=== PATIENT | female | born 1995 | race African-American/Black ===

== ENCOUNTER 2017-12-29 19:19 | Emergency (ER) | payer SELFPAY, OTHER ==
[2017-12-29] MEDS: FLUORESCEIN OPHTH TEST STRIP. OU (20:29)
[2017-12-29] MEDS: TETRACAINE 0.5% OPHTH SOLUTION 4ML BOTTLE. OU (20:29)
== END 2017-12-29 20:52 | disposition home or self-care (01) ==
LOC: ER 19:19
DX: T65.891A Toxic effect of other specified substances, accidental (unintentional), initial encounter (principal); H57.11 Ocular pain, right eye; Y92.89 Other specified places as the place of occurrence of the external cause
CPT/HCPCS: 99283

== ENCOUNTER 2019-04-27 15:20 | Emergency (ER) | payer SELFPAY ==
[~2019-04-27] VITALS: Ht 160 cm; Wt 82.8 kg
[~2019-04-27 15:20] MED LIST: HYDR-2761 PO; ONDA4TAB10 SL; TOBR5DRO2 OD
[2019-04-27 15:55] LABS: BILIRUBIN,URINE NEGATIVE (NEG); CLARITY,URINE CLOUDY; COLOR,URINE YELLOW; NITRITE,URINE NEGATIVE (NEG); PH,URINE 7.5; PROTEIN,URINE NEGATIVE (NEG-TRACE)
[2019-04-27 15:59] LABS: U PREG PATIENT POSITIVE (NEG)
[2019-04-27 16:08] LABS: AMORPHOUS SEDIMENT,UR PRESENT /HPF; BACTERIA,URINE 0 /HPF (0-FEW); RBC,URINE 0 /HPF (0-2); SQUAMOUS EPITHELIAL CELL,UR MANY /LPF
[2019-04-27 16:41] LABS: BASO # 0.1 x10^3/uL (0.0-0.2); BASO % 1 % (0-3); EOS # 0.3 x10^3/uL (0.0-0.7); EOS % 4 % (0-3); HEMATOCRIT 38.1 % (36.0-47.0); HEMOGLOBIN 12.6 g/dL (12.0-15.5); LYMPH # 2.1 x10^3/uL (1.0-4.8); LYMPH % 25 % (24-48); MEAN CORPUSCULAR HEMOGLOBIN 27 pg (25-35); MEAN CORPUSCULAR HGB CONC 33 g/dL (31-37); MEAN CORPUSCULAR VOLUME 81 fL (79-100); MONO # 0.6 x10^3/uL (0.0-1.1); MONO % 7 % (0-9); NEUT # 5.2 x10^3uL (1.8-7.7); NEUT % 63 % (31-73); PLATELET COUNT 237 x10^3/uL (140-400); RED BLOOD COUNT 4.72 x10^6/uL (3.50-5.40); RED CELL DISTRIBUTION WIDTH 14.5 % (11.5-14.5); WHITE BLOOD COUNT 8.2 x10^3/uL (4.0-11.0)
[2019-04-27 17:02] LABS: CALCIUM 8.8 mg/dL (8.5-10.1); CREATININE 0.8 mg/dL (0.6-1.0); GFR 105.8; POTASSIUM 3.6 mmol/L (3.5-5.1)
[2019-04-27 17:09] LABS: ALBUMIN 3.4 g/dL (3.4-5.0); ALBUMIN/GLOBULIN RATIO 0.8 (1.0-1.7); TOTAL BILIRUBIN 0.2 mg/dL (0.2-1.0); TOTAL PROTEIN 7.7 g/dL (6.4-8.2)
--- NOTE | 2019-04-27 17:48 | PHYS DOC ---
Past Medical History Past Medical History: No Pertinent History (MO HOUSTON APRN) Past Surgical History: No Surgical History (MO HOUSTON APRN) Alcohol Use: None Drug Use: None (MO HOUSTON APRN) Adult General Chief Complaint Chief Complaint: ABDOMINAL PAIN IN HPI HPI Patient is a 23 year old female who presents with generalized 9 out of 10 abdominal pain described as cramping that began today after she found out she is . She states her last menstrual cycle was March 25, 2019. Patient denies any vaginal bleeding. She is complaining of nausea. She is a 3 para 1 with one miscarriage. Denies anything exacerbating or relieving her pain. (MO HOUSTON APRN) Review of Systems Review of Systems Constitutional: Denies fever or chills [] Eyes: Denies change in visual acuity, redness, or eye pain [] HENT: Denies nasal congestion or sore throat [] Respiratory: Denies cough or shortness of breath [] Cardiovascular: No additional information not addressed in HPI [] GI: Reports abdominal pain, nausea, denies vomiting, bloody stools or diarrhea [] : Denies dysuria or hematuria [] Musculoskeletal: Denies back pain or joint pain [] Integument: Denies rash or skin lesions [] Neurologic: Denies headache, focal weakness or sensory changes [] Endocrine: Denies polyuria or polydipsia [] All other systems were reviewed and found to be within normal limits, except as documented in this note. (MO HOUSTON APRN) Allergies Allergies Allergies Coded Allergies Type Severity Reaction Last Updated Verified No Known Drug Allergies 07/16/16 No (JOSE HATCH MD) Physical Exam Physical Exam Constitutional: Well developed, well nourished, no acute distress, non-toxic appearance. [] HENT: Normocephalic, atraumatic, bilateral external ears normal, oropharynx moist, no oral exudates, nose normal. [] Eyes: PERRLA, EOMI, conjunctiva normal, no discharge. [] Neck: Normal range of motion, no tenderness, supple, no stridor. [] Cardiovascular:Heart rate regular rhythm, no murmur [] Lungs & Thorax: Bilateral breath sounds clear to auscultation [] Abdomen: Bowel sounds normal, soft, no tenderness, no masses, no pulsatile masses. [] Pelvic exam External pelvic appears normal, cervix is visualized, closed, no CMT, no adnexal tenderness, trace amount of white discharge in the vaginal vault. Skin: Warm, dry, no erythema, no rash. [] Back: No tenderness, no CVA tenderness. [] Extremities: No tenderness, no cyanosis, no clubbing, ROM intact, no edema. [] Neurologic: Alert and oriented X 3, normal motor function, normal sensory function, no focal deficits noted. [] Psychologic: Affect normal, judgement normal, mood normal. [] (MO HOUSTON APRN) Current Patient Data Vital Signs Vital Signs Date Time Temp Pulse Resp B/P (MAP) Pulse Ox O2 Delivery O2 Flow Rate FiO2 04/27/19 18:22 89 137/73 (94) Room Air 04/27/19 17:22 99 04/27/19 16:12 97.8 14 97.8 (JOSE HATCH MD) Lab Values Laboratory Tests Test 04/27/19 15:30 04/27/19 16:35 Urine Collection Type Unknown Urine Color Yellow Urine Clarity Cloudy Urine pH 7.5 Urine Specific Halsey 1.025 Urine Protein Negative mg/dL (NEG-TRACE) Urine Glucose (UA) Negative mg/dL (NEG) Urine Ketones (Stick) Negative mg/dL (NEG) Urine Blood Negative (NEG) Urine Nitrite Negative (NEG) Urine Bilirubin Negative (NEG) Urine Urobilinogen Dipstick 1.0 mg/dL (0.2 mg/dL) Urine Leukocyte Esterase Small (NEG) Urine RBC 0 /HPF (0-2) Urine WBC 1-4 /HPF (0-4) Urine Squamous Epithelial Cells Many /LPF Urine Amorphous Sediment Present /HPF Urine Bacteria 0 /HPF (0-FEW) Urine Mucus Mod /LPF Urine Test Positive (NEG) Urine Opiates Screen Neg (NEG) Urine Methadone Screen Neg (NEG) Urine Barbiturates Neg (NEG) Urine Phencyclidine Screen Neg (NEG) Urine Amphetamine/Methamphetamine Neg (NEG) Urine Benzodiazepines Screen Neg (NEG) Urine Cocaine Screen Pos (NEG) Urine Cannabinoids Screen Neg (NEG) Urine Ethyl Alcohol Neg (NEG) White Blood Count 8.2 x10^3/uL (4.0-11.0) Red Blood Count 4.72 x10^6/uL (3.50-5.40) Hemoglobin 12.6 g/dL (12.0-15.5) Hematocrit 38.1 % (36.0-47.0) Mean Corpuscular Volume 81 fL (79-100) Mean Corpuscular Hemoglobin 27 pg (25-35) Mean Corpuscular Hemoglobin Concent 33 g/dL (31-37) Red Cell Distribution Width 14.5 % (11.5-14.5) Platelet Count 237 x10^3/uL (140-400) Neutrophils (%) (Auto) 63 % (31-73) Lymphocytes (%) (Auto) 25 % (24-48) Monocytes (%) (Auto) 7 % (0-9) Eosinophils (%) (Auto) 4 % (0-3) H Basophils (%) (Auto) 1 % (0-3) Neutrophils # (Auto) 5.2 x10^3uL (1.8-7.7) Lymphocytes # (Auto) 2.1 x10^3/uL (1.0-4.8) Monocytes # (Auto) 0.6 x10^3/uL (0.0-1.1) Eosinophils # (Auto) 0.3 x10^3/uL (0.0-0.7) Basophils # (Auto) 0.1 x10^3/uL (0.0-0.2) Maternal Serum HCG Beta Subunit 3767 mIU/mL (0-5) H Sodium Level 138 mmol/L (136-145) Potassium Level 3.6 mmol/L (3.5-5.1) Chloride Level 103 mmol/L (98-107) Carbon Dioxide Level 29 mmol/L (21-32) Anion Gap 6 (6-14) Blood Urea Nitrogen 11 mg/dL (7-20) Creatinine 0.8 mg/dL (0.6-1.0) Estimated GFR (Cockcroft-Gault) 105.8 BUN/Creatinine Ratio 14 (6-20) Glucose Level 89 mg/dL (70-99) Calcium Level 8.8 mg/dL (8.5-10.1) Total Bilirubin 0.2 mg/dL (0.2-1.0) Aspartate Amino Transferase (AST) 17 U/L (15-37) Alanine Aminotransferase (ALT) 28 U/L (14-59) Alkaline Phosphatase 82 U/L (46-116) Total Protein 7.7 g/dL (6.4-8.2) Albumin 3.4 g/dL (3.4-5.0) Albumin/Globulin Ratio 0.8 (1.0-1.7) L Lipase 137 U/L (73-393) Ethyl Alcohol Level < 3 mg/dL (0-10) Laboratory Tests 04/27/19 16:35 Laboratory Tests 04/27/19 16:35 Microbiology 04/27/19 Wet Prep - Final, Complete (JOSE HATCH MD) EKG EKG [] (MO HOUSTON APRN) Radiology/Procedures Radiology/Procedures []PROCEDURE: OB <14 WKS W/TV Transabdominal and transvaginal obstetrical ultrasound less than 14 weeks. HISTORY: Abdominal pain Transabdominal ultrasound was performed. Uterus is normal in size and appearance measuring 8.7 x 3.5 x 4.7 cm. Endometrium was 1 cm. Ovaries were poorly cyst seen. Transvaginal imaging was performed for further evaluation. There is a cystic focus at the fundus of the uterus possibly a gestation with a mean sac size of 0.4 cm corresponding to 5 weeks 1 day gestational age. A pole was not identified. Follow-up will be necessary to determine viability. Right ovary measured 4.4 x 3.3 x 2.8 cm. There is a corpus lutein cyst in the right ovary measuring 2.1 cm. Left ovary was normal measuring 3.1 x 1.5 x 1.7 cm. There is flow in both ovaries with color imaging and Doppler. There is no free fluid in the pelvis. IMPRESSION: 1. Probable gestational sac within the uterus with a mean sac size of 0.4 cm corresponding to 5 weeks 1 day gestational age. Estimated date of delivery by ultrasound is 12/27/2019. 2. Follow-up will be necessary to determine viability as the pole was not identified. Electronically signed by: Carlos Soriano MD (04/27/2019 5:43 PM) [facility] DICTATED and SIGNED BY: CARLOS SORIANO MD DATE: 04/27/19 1741 (MO HOUSTON APRN) Course & Med Decision Making Course & Med Decision Making Pertinent Labs and Imaging studies reviewed. (See chart for details) This is a 23-year-old female patient presenting to the ED today complaining of abdominal pain in . Last menstrual cycle was March 25, 2019. She is a 3 para 1 with one miscarriage Positive urine hCG, beta-hCG 3767, CBC, CMP-no acute findings. Urine analysis is noted for small amount of leukocytes this urine appears grossly contaminated. Wet prep noted for BV-will d/c with flagyl OB ultrasound noted for- Probable gestational sac within the uterus with a mean sac size of 0.4 cm corresponding to 5 weeks 1 day gestational age Patient was provided instructions to follow-up with OB. (MO HOUSTON APRN) Course & Med Decision Making Staff Physician Addendum: I was working in the ER during the course of this patient's visit. I was available for consultation as needed, but I was not directly involved in the care of this patient. (JOSE HATCH MD) Dragon Disclaimer Dragon Disclaimer This electronic medical record was generated, in whole or in part, using a voice recognition dictation system. (MO HOUSTON APRN) Departure Departure Impression: Primary Impression: Abdominal pain in Additional Impression: Bacterial vaginosis in Disposition: HOME, SELF-CARE Condition: STABLE Referrals: NO PCP (PCP) SYLVESTER CANNON MD follow up in 1 week Patient Instructions: Abdominal Pain During , Bacterial Vaginosis Additional Instructions: You were evaluated in the emergency room for abdominal pain in , your ultrasound shows you are 5 weeks 1 day . You also have bacterial vaginosis. We put you on antibiotics. Make sure you complete them. Follow-up w ith your own [facility] in the next 1 week. Scripts Metronidazole (FLAGYL) 500 Mg Tablet 1 TAB PO BID, #14 TAB Prov: MO HOUSTON APRN 04/27/19 Problem Qualifiers Primary Impression: Abdominal pain in Trimester: first trimester Qualified Codes: O26.891 - Other specified related conditions, first trimester; R10.9 - Unspecified abdominal pain MO HOUSTON APRN Apr 27, 2019 17:48 JOSE HATCH MD Apr 27, 2019 19:31
[2019-04-27 18:22] VITALS: BP 137/73
[2019-04-27] MEDS ORDERED: METR500T PO (18:45)
[2019-04-27 18:52] LABS: BARBITURATES NEG (NEG); BENZODIAZEPINES NEG (NEG); CANNABINOIDS NEG (NEG); COCAINE POS (NEG); METHADONE NEG (NEG); OPIATES NEG (NEG); PHENCYCLIDINE NEG (NEG)
[2019-04-27 18:53] LABS: AMPHETAMINE/METHAMPHETAMINE NEG (NEG)
[2019-04-29 00:08] LABS: GC PROBE Negative (Negative)
== END 2019-04-27 19:20 | disposition home or self-care (01) ==
LOC: ER 15:20
DX: O23.591 Infection of other part of genital tract in pregnancy, first trimester (principal); B96.89 Other specified bacterial agents as the cause of diseases classified elsewhere; R10.84 Generalized abdominal pain; R11.0 Nausea; Z3A.01 Less than 8 weeks gestation of pregnancy
CPT/HCPCS: 36415; 76801; 76817; 80053; 80307; 81001; 81025; 83690; 84702; 85025; 87491; 87591; 99285; G0480; Q0111

== ENCOUNTER 2021-04-25 19:47 | Emergency (ER) | payer OTHER ==
[~2021-04-25] VITALS: Ht 162.6 cm; Wt 81.8 kg
[~2021-04-25 19:47] MED LIST changes: +METR500T PO
[2021-04-25 20:41] VITALS: BP 124/76
--- NOTE | 2021-04-25 21:03 | PHYS DOC ---
Past Medical History Past Medical History: No Pertinent History Past Surgical History: No Surgical History Smoking Status: Current Every Day Smoker Alcohol Use: None Drug Use: None General Adult EDM: Chief Complaint: MULTIPLE COMPLAINTS HPI: HPI: Patient is a 25 year old female presents emergency department chief complaint of upper respiratory infection signs and symptoms for the past 3 days. 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 Patient states she was given a summer cold cocktail that contained vitamin C and B12 supplements that did not seem to help today. Patient states that she has nasal congestion with a dry cough and sinus pains that seem to get worse at night, when she wakes up and goes to work her symptoms seem to resolve however at night she has a hard time sleeping because of her congestion. Patient currently denies chest pains, shortness of breath, throat pain, ear pains, visual changes, headaches, or dizziness. Patient denies nausea, vomiting, diarrhea, constipation or abdominal pains. Patient denies fever or chills. Patient denies rashes of her skin. Patient denies any other physical complaints or physical concerns. Review of Systems: Review of Systems: 14 body systems of review of systems have been reviewed. See HPI for pertinent positives and negative responses, otherwise all other systems are negative, nonpertinent or noncontributory. Constitutional: Negative except as outlined in HPI above. Skin: Negative except as outlined in HPI above. Eyes: Negative except as outlined in HPI above. HENT: Negative except as outlined in HPI above. Respiratory: Negative except as outlined in HPI above. Cardiovascular: Negative except as outlined in HPI above. GI: Negative except as outlined in HPI above. : Negative except as outlined in HPI above. Musculoskeletal: Negative except as outlined in HPI above. Integument: Negative except as outlined in HPI above. Neurologic: Negative except as outlined in HPI above. Endocrine: Negative except as outlined in HPI above. Lymphatic: Negative except as outlined in HPI above. Psychiatric: Negative except as outlined in HPI above. Heart Score: C/O Chest Pain: No Risk Factors: Risk Factors: DM, Current or recent (<one month) smoker, HTN, HLP, family hi story of CAD, obesity. Risk Scores: Score 0 - 3: 2.5% MACE over next 6 weeks - Discharge Home Score 4 - 6: 20.3% MACE over next 6 weeks - Admit for Clinical Observation Score 7 - 10: 72.7% MACE over next 6 weeks - Early Invasive Strategies Allergies: Allergies: Allergies Coded Allergies Type Severity Reaction Last Updated Verified No Known Drug Allergies 07/16/16 No Physical Exam: PE: General: Appears well, nontoxic, uncomfortable, 25-year-old female no apparent distress. Skin: Warm, dry. Normal for ethnicity. HEENT: Atraumatic, PERRLA, rhinorrhea and congestion, nasal turbinates boggy bilaterally. Moist mucous membranes, uvula midline, maintaining secretions, no phonation changes. No lymphadenopathy of the head or neck appreciated. No postnasal drip. Neck: Trachea midline, normal ROM. No stridor. Respiratory: Normal WOB. CTAB without R/R. No tachypnea. No adventitious lung sounds appreciated. Cardiovascular: Regular rate and rhythm, normal peripheral perfusion, no cyanosis appreciated. Abdomen: Soft, nontender, no distention. Back: Normal range of motion. Musculoskeletal: No swelling or deformity. Neuro: Alert and oriented x4. MAEE. Psych: Normal affect and mood. Current Patient Data: Vital Signs: Vital Signs Date Time Temp Pulse Resp B/P (MAP) Pulse Ox O2 Delivery O2 Flow Rate FiO2 04/25/21 19:52 98.6 94 20 141/80 (94) 98 Room Air 98.6 EKG: EKG: [] Radiology/Procedures: Radiology/Procedures: [] Course & Med Decision Making: Course & Med Decision Making Pertinent Labs and Imaging studies reviewed. (See chart for details) 25-year-old female, vital signs reviewed, presents emergency department with complaints of upper respiratory infection type signs and symptoms. Physical presentation and examination consistent with viral URI. Discussed findings with patient, will start with Benadryl and Sudafed here in the emergency department. Recommended to patient [id number] Flonase, Benadryl, Sudafed, Zyrtec or Claritin, Robitussin-DM if chest congestion signs and symptoms arise. Patient is asking for work excuse, patient will be given work excuse for today and tomorrow. Patient gave verbal understanding of discharge home instructions, follow-up with PCP soon, [id number] medication use, return to ER precautions and concerns, patient was hemodynamically stable, nontoxic in appearance, in no apparent distress at discharge time, patient was discharged home without incident. Elinoron Disclaimer: Merari Disclaimer: This electronic medical record was generated, in whole or in part, using a voice recognition dictation system. Departure Departure Impression: Primary Impression: URI (upper respiratory infection) Qualified Codes: J06.9 - Acute upper respiratory infection, unspecified Disposition: HOME / SELF CARE / HOMELESS Condition: GOOD Referrals: NO PCP (PCP) Patient Instructions: Upper Respiratory Infection, Adult Additional Instructions: You were seen today in the emergency department for upper respiratory infection type signs and symptoms. We have discussed home treatment with Benadryl, Zyrtec or Claritin, [id number] Flonase nasal spray, Benadryl. Please obtain these from your pharmacy and take as directed. We also discussed if symptoms progress to your chest and you develop a productive cough, you may also start with [id number]-wupoquz Robitussin-DM. However I do not believe you need Robitussin-DM at this time. Please increase your fluid intake as this will help loosen secretions and lessen symptoms. Please follow-up with your primary care physician soon for reevaluation. I have provided you with a list of healthcare community resources to find a primary healthcare provider. Please return to the emergency department for worsening symptoms or other concerns. It was a pleasure taking care of you today in the emergency department and I thank you for allowing me to participate in your emergency healthcare needs. EMERGENCY DEPARTMENT GENERAL DISCHARGE INSTRUCTIONS Thank you for coming to [facility] Emergency Department (ED) today and trusting us with you care. We trust that you had a positive experience in our Emergency Department. If you wish to speak to the department management, you may call the Director at [phone]. YOUR FOLLOW UP INSTRUCTIONS ARE FOLLOWS: 1. Do you have a private Doctor? If you do not have a private doctor, please ask for a resource list of physicians or clinics that may be able to assist you with follow up care. 2. The Emergency Physicain has interpreted your x-rays. The X-Ray specialist will also review them. If there is a change in the findings, you will be notified in 48 hours when at all possible. 3. A lab test or culture has been done, your results will be reviewed and you will be notified if you need a change in treatment. ADDITIONAL INSTRUCTIONS AND INFORMATION: 1. Your care today has been supervised by a physician who is specially trained in emergency care. Many problems require more than one evaluation for a complete diagnosis and treatment. We recommend that you schedule your follow up appointment as recommended to ensure complete treatment of you illness or injury. If you are unable to obtain follow up care and continue to have a problem, or if your condition worsens, we recommend that you return to the ED. 2. We are not able to safely determine your condition over the phone nor are we able to give sound medical advice over the phone. For these safety reasons, if you call for medical advice we will ask you to come to the ED for further evaluation. 3. If you have any questions regarding these discharge instructions please call the ED at [phone]. SAFETY INFORMATION: In the interest of safety, wellness, and injury prevention; we encourage you to wear your sealbelt, if you smoke; quite smoking, and we encourage family to use a protective helmet for bicycling and other sporting events that present an increased risk for head injury. IF YOUR SYMPTOMS WORSEN OR NEW SYMPTOMS DEVELOP, OR YOU HAVE CONCERNS ABOUT YOUR CONDITION; OR IF YOUR CONDITION WORSENS WHILE YOU ARE WAITING FOR YOUR FOLLOW UP APPOINT MENT; EITHER CONTACT YOUR PRIMARY CARE DOCTOR, THE PHYSICIAN WHOSE NAME AND NUMBER YOU WERE GIVEN, OR RETURN TO THE ED IMMEDIATELY. RADHA SELBY APRN Apr 25, 2021 21:03
[2021-04-25] MEDS ORDERED: diphenhydrAMINE HCL 25 MG CAPSULE PO ONE (21:30)
[2021-04-25] MEDS ORDERED: PSEUDOEPHEDRINE 30 MG TABLET. PO ONE (21:30)
== END 2021-04-25 21:15 | disposition home or self-care (01) ==
LOC: ER 19:47
DX: J06.9 Acute upper respiratory infection, unspecified (principal); F17.200 Nicotine dependence, unspecified, uncomplicated
CPT/HCPCS: 99283; Q0163